=== PATIENT | female | born 1950 | race Caucasian/White ===

== ENCOUNTER → 2016-10-03 | Outpatient (CLI) | payer OTHER ==
[~2016-10-03] MED LIST: ALBUTEROL MININEB NEB; ALBUTEROL17 GM INH; AUGMENTIN PO; CELEXA20 MG PO; CENTRUM SILVER PO; EXCEDRIN EXTRA1 TAB PO; FLAGYL PO; FLAGYL250 M1 PO; FLEXERIL PO; HYDROCHLOROTH12.5 M1 PO; HYDROCHLOROTH12.5 MG PO; HYDROCODON-ACE1 EAC7 PO; LEVAQUIN PO; LORTAB 5/500 TA1 TA1 PO; LOTENSIN20 MG PO; MIRALAX17 GM PO; NAPROSYN250 M1 PO; NEXIUM PO; PERCOCET PO; PREDNISONE PO; PRILOSEC PO; PRILOSEC20 M1 PO; SENNA S TABLET1 TAB PO; SIMVASTATIN20 MG PO; SPIRIVA18 MCG INH; SYMBICORT INH
--- NOTE | ~2016-10-03 | MY6 ---
[facility] A Service [facility] RADIOLOGY TEXT RESULTS PATIENT: DELMER VILLELA LOCATION: [facility] : 52 UNIT #: [id number] AGE: [address]: Nicole Kendall MD SEX: F ORDER DR: [id number] [facility]. [place], [place] [address] [id number] O MR#: [id number] Acc #: [id number] NAME: DELMER VILLELA : 1950 SEX: F STUDY DATE/TIME: 10/03/2016 14:39 UNIT: [facility] ROOM: STUDY DESCRIPTION: MY Mammogram Dx Dig Rafael Attending Physician: Nicole Kendall M.D. Referring Physician: Nicole Kendall M.D. Ordering Physician: Nicole Kendall M.D. Primary Care Physician: Nicole Kendall M.D. MEDICAL IMAGING REPORT This report is preliminary unless electronic signature is present EXAM Bilateral digital diagnostic mammogram COMPARISON Left diagnostic mammogram dated October 11, 2015 as well screening mammograms dated September 21, 2015 and February 05, 2012. INDICATION 65-year-old female with a left breast asymmetry only seen on CC view of screening mammogram performed in September 2015. This appeared to resolve on diagnostic mammography of October 11, 2015 but precautionary 6-month followup was recommended. The patient is just now returning approximately a year later. FINDINGS Full field CC and MLO views of both breasts were obtained in addition to spot compression CC view and full field ML view of the left breast. There are scattered fibroglandular densities. There are no suspicious findings in either breast. IMPRESSION No mammographic evidence of malignancy. Continued annual screening mammography and clinical breast exam are recommended. Findings and recommendations were discussed with the patient today. Patients over the age of 40 are entered into a reminder system with target due date for the next mammogram. A result letter will also be sent to the patient. BIRADS: 1 Negative Dictated by... Kush Mooney M.D. [facility] RADIOLOGY TEXT RESULTS PATIENT: DELMER VILLELA LOCATION: [facility] : 52 UNIT #: [id number] AGE: [address]: Nicole Kendall MD SEX: F ORDER DR: THIS IS AN ELECTRONICALLY VERIFIED REPORT Kush Mooney M.D. at 10/07/2016 5:53 PM Donte TD: 10/03/2016 15:47 JOB #: [id number] MEDICAL IMAGING REPORT Page 1 of 1 COPY
--- NOTE | ~2016-10-03 | CT138 ---
[facility] A Service of [facility] RADIOLOGY TEXT RESULTS PATIENT: DELMER VILLELA LOCATION: [facility] : 52 UNIT #: [id number] AGE: [address]: Nicole Kendall MD SEX: F ORDER DR: [id number] [facility] [address] [facility]. [place], [place] [address] [id number] O MR#: [id number] Acc #: [id number] NAME: DELMER VILLELA. : 1950 SEX: F STUDY DATE/TIME: 10/03/2016 16:19 UNIT: [facility] ROOM: STUDY DESCRIPTION: CT Lung screening initial Attending Physician: Nicole Kendall M.D. Referring Physician: Nicole Kendall M.D. Ordering Physician: Nicole Kendall M.D. Primary Care Physician: Nicole Kendall M.D. MEDICAL IMAGING REPORT This report is preliminary unless electronic signature is present EXAM CT lung cancer screening utilizing a low-dose protocol 10/03/2016 INDICATION 65-year-old female with a history of tobacco abuse, 2 packs per day for 45 years for a total 90 pack year history. Lung cancer screening. Coughing over 2 years. Sometimes it is productive, short of air 2 years. COPD, emphysema. No history of malignancy. TECHNIQUE Noncontrast CT of the chest was performed utilizing a low-dose lung cancer screening protocol. We have no comparison studies. This CT examination was performed with one or more of the following radiation dose reduction techniques: automatic exposure control, adjustment of mA and/or kV according to patient size, and iterative reconstruction. FINDINGS The lungs are emphysematous. There is no effusion or suspicious pulmonary nodule. There are scattered areas of atelectasis or scarring with a lower lobe predominance on the right. Included thyroid unremarkable. No pericardial effusion. Reactive-appearing axillary nodes. No mediastinal adenopathy or pericardial effusion. Aorta demonstrates atherosclerotic change. Included upper abdomen negative. There is no suspicious bone lesion. Chronic-appearing rib fractures on the right involving the fourth through tenth ribs. 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 IMPRESSION 1. Essentially negative lung cancer screening chest CT. The lungs STS. [facility] A Service of [facility] RADIOLOGY TEXT RESULTS PATIENT: DELMER VILLELA LOCATION: [facility] : 52 UNIT #: [id number] AGE: [address]: Nicole Kendall MD SEX: F ORDER DR: demonstrate mild emphysematous change but there is no suspicious pulmonary nodule or effusion and no adenopathy is present. 2. Atherosclerotic change of the aorta. 3. Upper abdomen negative. 4. Chronic-appearing right-sided rib fractures. Lung-RADS category 1. Recommend continuation of annual screening with low-dose CT in 1 year. Dictated by... Cih Lion M.D. THIS IS AN ELECTRONICALLY VERIFIED REPORT Chi Loin M.D. at 10/04/2016 11:08 AM TATIANNA/leigh TD: 10/04/2016 10:25 JOB #: [id number] MEDICAL IMAGING REPORT Page 1 of 1 COPY
== END | disposition home or self-care (01) ==
LOC: CMAM 14:12
DX: F17.210 Nicotine dependence, cigarettes, uncomplicated (principal); R92.8 Other abnormal and inconclusive findings on diagnostic imaging of breast; I70.0 Atherosclerosis of aorta
CPT/HCPCS: G0204; G0297